=== PATIENT | female | born 1995 | race Caucasian/White ===

== ENCOUNTER 2016-09-03 04:48 | Emergency (ER) | payer OTHER ==
[2016-09-03 05:19] LABS: Amorphous Sediment,Urine Rare /hpf; Appearance,Urine Cloudy (Clear); Bilirubin,Urine Negative (Negative); Glucose,Urine (UA) Negative (Negative); Ketones,Urine Negative (Negative); Leukocyte Esterase,Urine Moderate (Negative); Mucus,Urine Rare /hpf; Nitrite,Urine Negative (Negative); PH, Urine 6.5 (5.0-8.0); Particle Count 11342; Protein,Urine Trace (Negative); RBC,Urine >182 /hpf (0-5); Specific Gravity,Urine 1.016 (1.001-1.035); UA Billing (MACRO vs. MICRO) MICRO; Urobilinogen,Urine <2.0 mg/dL (<2.0); WBC,Urine 19 /hpf (0-5)
--- NOTE | 2016-09-03 05:21 | ED ---
Female Urogenital HPI - General Chief complaint: Urogenital Stated complaint: Female Time Seen by Provider: 09/03/16 05:00 Source: patient Mode of arrival: ambulatory Limitations: no limitations - History of Present Illness Initial comments: This patient is a 20-year-old woman who presents to be evaluated for which she believes is a urinary tract infection. The patient states she has had previous similar symptoms and was told was due to urinary tract infection. She states that approximately 2 hours ago while she was trying to rest, she noted some burning that she states is "inside" and indicates the genital area. The patient states that she feels like she has to urinate. She has not noted any other changes in urination, other than there may have been a little bit of hematuria. Patient denies abdominal or back pain. She denies any systemic symptoms. MD Complaint: other Onset/Timin -: hour(s) Location: other Radiation: non-radiating Severity: mild Quality: burning Consistency: constant Improves with: none Worsens with: none Last Menstrual Period: 09/02/16 Patient : No Associated Symptoms: denies other symptoms - Related Data Home Medications Medication Instructions Recorded Confirmed Sprintec 1 tab PO DAILY 11/18/13 09/03/16 Propranolol [Inderal] 10 mg PO QID 09/03/16 09/03/16 Previous Rx's Medication Instructions Recorded Nitrofurantoin Monohyd/M-Cryst 100 mg PO Q12HR #6 cap 09/03/16 [Macrobid] Phenazopyridine [Pyridium] 100 mg PO TID #6 tablet 09/03/16 Allergies Allergy/AdvReac Type Severity Reaction Status Date / Time No Known Allergies Allergy Verified 09/03/16 04:54 Review of Systems ROS Statement: Those systems with pertinent positive or pertinent negative responses have been documented in the HPI. ROS Other: All systems not noted in ROS Statement are negative. Constitutional: Denies: fever, chills Respiratory: Denies: cough, dyspnea Cardiovascular: Denies: chest pain Gastrointestinal: Reports: as per HPI. Denies: abdominal pain, vomiting, diarrhea Genitourinary: Reports: as per HPI, urgency, dysuria, frequency, hematuria. Denies: discharge, abnormal menses Musculoskeletal: Denies: back pain Skin: Denies: rash Neurological: Denies: headache, weakness, numbness Past Medical History Past Medical History: No Reported History Additional Past Medical History / Comment(s): urinary tract infections History of Any Multi-Drug Resistant Organisms: None Reported Past Surgical History: No Surgical Hx Reported Past Psychological History: No Psychological Hx Reported Smoking Status: Never smoker Past Alcohol Use History: None Reported Past Drug Use History: None Reported General Exam Limitations: no limitations General appearance: alert, in no apparent distress Head exam: Present: atraumatic, normocephalic Respiratory exam: Present: normal lung sounds bilaterally. Absent: respiratory distress, wheezes, rales, rhonchi, stridor Cardiovascular Exam: Present: regular rate, normal rhythm, normal heart sounds. Absent: systolic murmur, diastolic murmur, rubs, gallop GI/Abdominal exam: Present: soft. Absent: distended, tenderness, guarding, rebound, mass Back exam: Present: normal inspection. Absent: CVA tenderness (R), CVA tenderness (L) Neurological exam: Present: alert Skin exam: Present: warm, dry, intact, normal color. Absent: rash Course Vital Signs 09/03/16 04:51 Temperature 98 F Pulse Rate 105 H Respiratory 20 Rate Blood Pressure 139/99 O2 Sat by Pulse 100 Oximetry Medical Decision Making - Lab Data Lab Results 09/03/16 09/03/16 Range/Units 05:00 05:00 Urine Color Yellow Urine Appearance Cloudy H (Clear) Urine pH 6.5 (5.0-8.0) Ur Specific [place] 1.016 (1.001-1.035) Urine Protein Trace H (Negative) Urine Glucose (UA) Negative (Negative) Urine Ketones Negative (Negative) Urine Blood Large H (Negative) Urine Nitrite Negative (Negative) Urine Bilirubin Negative (Negative) Urine Urobilinogen <2.0 (<2.0) mg/dL Ur Leukocyte Esterase Moderate H (Negative) Urine RBC >182 H (0-5) /hpf Urine WBC 19 H (0-5) /hpf Amorphous Sediment Rare H (None) /hpf Hyaline Casts 2 (0-2) /lpf Urine Mucus Rare H (None) /hpf Urine HCG, Qual Not Detected (Not Detectd) Disposition Clinical Impression: Urinary tract infection Disposition: HOME SELF-CARE Condition: Fair Instructions: Urinary Tract Infection in Women (ED) Prescriptions: Nitrofurantoin Monohyd/M-Cryst [Macrobid] 100 mg PO Q12HR #6 cap Phenazopyridine [Pyridium] 100 mg PO TID #6 tablet Referrals: Cat Tovar DO [Primary Care Provider] - 1-2 days
[2016-09-03] MEDS ORDERED: PHENAZOPYRIDINE 100 MG TAB PO STA (05:58)
[2016-09-03] MEDS ORDERED: NITROFURANTOIN MONOHYD/M-CRYST 100 MG CAP PO STA (05:59)
[2016-09-03 06:12] VITALS: BP 121/71; PULSE 80; RESP 16; TEMP 97.6
== END 2016-09-03 06:14 | disposition home or self-care (01) ==
LOC: EC 04:48
DX: N39.0 Urinary tract infection, site not specified (principal); Z79.899 Other long term (current) drug therapy
CPT/HCPCS: 81001; 81025; 99283

== ENCOUNTER 2016-09-05 10:27 | Emergency (ER) | payer OTHER ==
[2016-09-05 10:32] VITALS: RESP 18; TEMP 98.2
--- NOTE | 2016-09-05 10:53 | ED ---
General Adult HPI - General Chief complaint: Urogenital Stated complaint: FEMALE Time Seen by Provider: 09/05/16 10:35 Source: patient, RN notes reviewed, old records reviewed Mode of arrival: ambulatory Limitations: no limitations - History of Present Illness Initial comments: Patient is a 20-year-old female who presents emergency room today with chief complaint of increased dysuria. She does admit that she was seen here in the emergency room just 2 days ago for a urinary tract infection. States she started on medications. Does not feel that anything is improving. States seems to be getting worse. She states she called her OB office advised come here in the emergency room and that she should have STD testing. Patient denies any recent fever, chills, shortness of breath, chest pain, back pain, abdominal pain, nausea or vomiting, numbness or tingling, constipation or diarrhea, headaches or visual changes, or any other complaints. - Related Data Home Medications Medication Instructions Recorded Confirmed Sprintec 1 tab PO HS 11/18/13 09/05/16 Propranolol HCl 40 mg PO HS 09/05/16 09/05/16 Previous Rx's Medication Instructions Recorded Nitrofurantoin Monohyd/M-Cryst 100 mg PO Q12HR #6 cap 09/03/16 [Macrobid] Phenazopyridine [Pyridium] 100 mg PO TID #6 tablet 09/03/16 Sulfamethox-Tmp 800-160Mg [Bactrim 1 tab PO Q12HR #14 tab 09/05/16 DS 800-160 mg] Allergies Allergy/AdvReac Type Severity Reaction Status Date / Time No Known Allergies Allergy Verified 09/05/16 11:11 Review of Systems ROS Statement: Those systems with pertinent positive or pertinent negative responses have been documented in the HPI. ROS Other: All systems not noted in ROS Statement are negative. Past Medical History Past Medical History: No Reported History Additional Past Medical History / Comment(s): urinary tract infections History of Any Multi-Drug Resistant Organisms: None Reported Past Surgical History: No Surgical Hx Reported Past Psychological History: No Psychological Hx Reported Smoking Status: Never smoker Past Alcohol Use History: None Reported Past Drug Use History: None Reported General Exam - General Exam Comments Initial Comments: General: The patient is awake and alert, in no distress, and does not appear acutely ill. Eye: Pupils are equal, round and reactive to light, extra-ocular movements are intact. No nystagmus. There is normal conjunctiva bilaterally. No signs of icterus. Ears, nose, mouth and throat: There are moist mucous membranes and no oral lesions. Neck: The neck is supple, there is no tenderness or JVD. Cardiovascular: There is a regular rate and rhythm. No murmur, rub or gallop is appreciated. Respiratory: Lungs are clear to auscultation, respirations are non-labored, breath sounds are equal. No wheezes, stridor, rales, or rhonchi. Gastrointestinal: Soft, non-distended, non-tender abdomen without masses or organomegaly noted. There is no rebound or guarding present. No CVA tenderness. Bowel sounds are unremarkable. Musculoskeletal: Normal ROM, no tenderness. Strength 5/5. Sensation intact. Pulses equal bilaterally 2+. Neurological: A&O x 3. CN II-XII intact, There are no obvious motor or sensory deficits. Coordination appears grossly intact. Speech is normal. Skin: Skin is warm and dry and no rashes or lesions are noted. Psychiatric: Cooperative, appropriate mood & affect, normal judgment. Limitations: no limitations Course Vital Signs 09/05/16 09/05/16 10:28 11:12 Temperature 98.2 F Pulse Rate 91 74 Respiratory 18 18 Rate Blood Pressure 139/109 135/97 O2 Sat by Pulse 96 98 Oximetry Medical Decision Making - Medical Decision Making Patient does admit that she is concerned about possible STDs and would like to be prophylactically treated. Patient's urinalysis does show positive nitrite is been on Macrobid for the last 2 days. There is no urine culture from 2 days ago. Cultures been added today. Patient will have antibiotics changed to Bactrim at this time is spent 2 days still infection. Patient given a gram of Rocephin to treat for both STDs and also UTI at this time. Patient will be given a gram of azithromycin as well for STD prophylaxis. She is advised follow -up with the family doctor or [facility]. Advised no sexual contact until she knows results of her test. - Lab Data Lab Results 09/05/16 09/05/16 Range/Units 10:41 10:41 Urine Color Dark Brown Urine Appearance Cloudy H (Clear) Urine pH 5.5 (5.0-8.0) Ur Specific [place] 1.025 (1.001-1.035) Urine Protein 2+ H (Negative) Urine Glucose (UA) Negative (Negative) Urine Ketones Negative (Negative) Urine Blood Negative (Negative) Urine Nitrite Positive H (Negative) Urine Bilirubin 1+ H (Negative) Urine Urobilinogen 3.0 (<2.0) mg/dL Ur Leukocyte Esterase Negative (Negative) Urine WBC 7 H (0-5) /hpf Ur Squamous Epith Cells 25 H (0-4) /hpf Urine Bacteria Rare H (None) /hpf Urine Mucus Many H (None) /hpf Urine HCG, Qual Not Detected (Not Detectd) Disposition Clinical Impression: UTI (urinary tract infection), Concern about STD in female without diagnosis Disposition: HOME SELF-CARE Condition: Good Instructions: Urinary Tract Infection in Women (ED) Additional Instructions: Please refrain from any sexual contact until you know the results of her cultures. Please discontinue previously prescribed antibiotics for urinary tract infection begin new. Please return here to the emergency room symptoms increase or worsen. Please continue follow-up with OB/ [facility] for further evaluation. Prescriptions: Sulfamethox-Tmp 800-160Mg [Bactrim DS 800-160 mg] 1 tab PO Q12HR #14 tab Referrals: Cat Tovar DO [Primary Care Provider] - 1-2 days Time of Disposition: 11:32
[2016-09-05 11:24] LABS: Appearance,Urine Cloudy (Clear); Bacteria,Urine Rare /hpf; Bilirubin,Urine 1+ (Negative); Glucose,Urine (UA) Negative (Negative); Ketones,Urine Negative (Negative); Leukocyte Esterase,Urine Negative (Negative); Mucus,Urine Many /hpf; Nitrite,Urine Positive (Negative); PH, Urine 5.5 (5.0-8.0); Particle Count 16659; Protein,Urine 2+ (Negative); Specific Gravity,Urine 1.025 (1.001-1.035); Squamous Epithelial Cell,Urine 25 /hpf (0-4); UA Billing (MACRO vs. MICRO) MICRO; WBC,Urine 7 /hpf (0-5)
[2016-09-05] MEDS ORDERED: AZITHROMYCIN 500 MG TAB PO STA (11:30)
[2016-09-05] MEDS ORDERED: cefTRIAXone 250 MG VIAL IM STA (11:31)
[2016-09-05] MEDS ORDERED: cefTRIAXone 1,000 MG VIAL (IM USE) IM STA (11:53)
[2016-09-05 11:59] VITALS: BP 140/88; PULSE 82
[2016-09-06 15:06] LABS: Chlamydia/GC Source Vaginal
== END 2016-09-05 12:03 | disposition home or self-care (01) ==
LOC: EC 10:27
DX: N39.0 Urinary tract infection, site not specified (principal); Z20.2 Contact with and (suspected) exposure to infections with a predominantly sexual mode of transmission; Z79.3 Long term (current) use of hormonal contraceptives; Z79.899 Other long term (current) drug therapy
CPT/HCPCS: 87591; 87491; 81001; 81025; 87808; 87070; 87086; 99284; 96372; J0696; 87205